=== PATIENT | male | born 1960 | race Caucasian/White ===

== ENCOUNTER 2023-10-23 15:53 | Inpatient (IN) | payer BC, SELFPAY ==
[2023-10-22] VITALS (7 sets, daily range): BP systolic 134–152; BP diastolic 76–112; BMI 31.7
[2023-10-22 17:24] LABS: Glucose - Point of Care 95 mg/dl (70-99)
[2023-10-22 18:27] LABS: % Basophils 0.8 % (0-2); % Eosinophils 2.7 % (0-6); % Immature Granulocytes 0.3 % (0-0.5); % Lymphocytes 27.2 % (20.5-51.1); % Monocytes 6.9 % (1.7-9.3); % Neutrophils 62.1 % (42.2-75.2); Absolute Basophils 0.1 10^3/uL (0-0.2); Absolute Eosinophils 0.2 10^3/uL (0-0.7); Absolute Lymphocytes 2.1 10^3/uL (1.2-3.4); Absolute Monocytes 0.5 10^3/uL (0.1-0.6); Absolute Neutrophils 4.8 10^3/uL (1.4-6.5); Hematocrit 36.7 % (39.0-52.0); Hemoglobin 11.9 g/dL (13.0-18.0); Mean Corp Hgb Conc. 32.4 g/dL (33.0-37.0); Mean Corpuscular Hgb 22.1 pg (27.0-31.0); Mean Corpuscular Volume 68.2 fL (80.0-94.0); Mean Platelet Volume 9.7 fL (7.4-10.4); Nucleated Red Blood Cells % 0 % (-); Platelet Count 220 10^3/uL (130-400); Red Blood Cell Count 5.38 10^6/uL (4.70-6.10); Red Cell Dist. Width 15.4 % (11.5-14.5); White Blood Cell Count 7.8 10^3/uL (4.8-10.8)
[2023-10-22 18:45] LABS: ALT (SGPT) 16 U/L (0-50); AST (SGOT) 16 U/L (17-59); Albumin 4.5 g/dl (3.5-5.0); Alkaline Phosphatase 71 U/L (38-126); Blood Urea Nitrogen 10 mg/dl (9-20); Calcium 9.4 mg/dl (8.4-10.2); Carbon Dioxide 25 mmol/L (22-30); Chloride 105 mmol/L (98-107); Glucose 94 mg/dl (70-99); Potassium 3.4 mmol/L (3.5-5.1); Sodium 138 mmol/L (135-145); Total Bilirubin 0.8 mg/dl (0.2-1.3); Total Protein 7.5 g/dl (6.3-8.2); eGFR > 60.00
[2023-10-22 19:03] LABS: Troponin I < 0.012 ng/ml
--- NOTE | 2023-10-22 19:37 | ED.GENMED ---
History of Present Illness
General
Chief Complaint: Change in Mental Status
Source: patient
Time Seen by Provider: 10/22/23 17:37
History of Present Illness
History of Present Illness:
63-year-old male who presents after he suddenly had difficulty writing an email. Patient states he was at work and doing his normal routine when he suddenly felt like he could not figure out how to do an email. The patient admits that he was
walking the hallway just prior to send a little bit of pain in his right arm. No numbness or motor weakness. He then went home and could not figure out how to get in his house which is a coated door. He states that his daughter's birthday and he
never forgets it. He now feels a lot better but was concerned. He states he did look in the mirror and did not see any asymmetry. He did not notice any motor weakness. He denies any headache. No back pain. He does admit that he is under a lot
of stress. States that he is about to retire in 2 days after many years at the same job and also admits that his ex-girlfriend of 22 years has obtained a digital content marketing manager after leaving him.
Past History
Past History
ED Past Medical History: HTN; Negative CAD
ED Past Surgical History: Negative Cardiac
Social History
Tobacco: Non-smoker
Alcohol: None
Drug: None
Living: with family
Employment: Employed
Family History
Family History: Other (Noncontributory)
Phy Exam
Physical Exam
Physical Exam:
CONSTITUTIONAL Patient alert and oriented to person, place and time. Well-appearing. Vital signs reviewed.
HEAD atraumatic, normocephalic.
EYES eyelids normal to inspection, Pupils equally round and reactive to light, Extraocular muscles intact, Conjunctiva normal, Sclera normal.
NECK normal range of motion, Trachea midline, no jugular venous distention.
RESPIRATORY CHEST No respiratory distress noted, Chest expansion equal, Bilateral breath sounds clear.
CARDIOVASCULAR regular rate and rhythm, Heart sounds normal.
ABDOMEN abdomen nontender, Bowel sounds normal. No distention.
BACK normal inspection, no obvious deformities
UPPER EXTREMITY range of motion normal, Motor strength normal, no cyanosis, no edema.
LOWER EXTREMITY range of motion normal, Motor strength normal, no cyanosis, no edema.
NEURO Speech normal, No focal motor deficits, Sulma coma scale 15, Memory normal, Cranial Nerves intact to screening exam. Normal finger-nose. No pronator drift.
SKIN skin warm, dry, and normal in color.
PSYCHIATRIC patient oriented to person place and time, Normal affect.
Course
Orders/Labs/Results
Orders:
Orders
10/22/23 17:20
Electrocardiogram (*1) Urgent
Reason for Study: TIA/Stroke
10/22/23 17:21
EKG- Treatment ONCE
10/22/23 17:37
CT Head W/o Iv Contrast Urgent
Comment:
Reason For Exam: aphasia, htn
10/22/23 18:18
Complete Blood Count/With Diff Urgent
Comprehensive Metabolic Panel Urgent
Magnesium Urgent
Troponin I Urgent
10/22/23 20:06
Aspirin Chewable [Low Strength Aspirin] 243 mg PO NOW STA
Abnormal Lab Results
10/22/23
18:18
Hgb 11.9 L g/dL
(13.0-18.0)
Hct 36.7 L %
(39.0-52.0)
MCV 68.2 L fL
(80.0-94.0)
MCH 22.1 L pg
(27.0-31.0)
MCHC 32.4 L g/dL
(33.0-37.0)
RDW 15.4 H %
(11.5-14.5)
Potassium 3.4 L mmol/L
(3.5-5.1)
AST 16 L U/L
(17-59)
10/22/23 18:18
10/22/23 18:18
Vital Signs
Initial and Last Documented VS:
Initial Vital Signs
Temp Pulse Resp BP Pulse Ox
98.1 F 95 18 147/112 98
10/22/23 17:15 10/22/23 17:15 10/22/23 17:15 10/22/23 17:15 10/22/23 17:15
Last Documented Vital Signs
Temp Pulse Resp BP Pulse Ox
98.1 F 82 19 145/84 96
10/22/23 17:15 10/22/23 19:15 10/22/23 19:15 10/22/23 19:00 10/22/23 19:15
MDM/Problems Addressed
Differential Diagnosis Includes:
Transient global amnesia, TIA
*Radiology
Radiology exam reviewed: preliminary read by ED provider (No obvious intracranial hemorrhage) and radiology read reviewed
*Pulse Oximetry
Patient hypoxic: no
*EKG
Interpreted by ED Provider?: Yes
Interpretation: normal
Rate: normal
Rhythm: sinus
Ophir: normal axis
QRS Pattern: normal QRS
Ischemia: no ischemia
*Auto Wheel Alignment Specialist Interpretation
Rate: normal
Interpretation: normal
Rhythm: sinus
*Critical Care Note
Total Time (30-74mins, 75-104mins- exclusive of procedures): Not Applicable
Data Reviewed
Review of Other/Old Records Reveals: Discharge Summary (From 2011 reviewed)
Source: patient
Prescriptions/Medications Considered But Not Given:
Consider TNK but patient symptoms have seemed to resolve. No aphasia noted
Patient Management
Discussion with other providers: [employer] D[employer] (Case discussed with neurology)
Escalation/DeEscalation of care consider admission/obs:
63-year-old male with history of hypertension who presents after he had difficulty with common tasks. Question whether this was an aphasia. Case was discussed with neurology who agrees that the patient is at some risk and should come in for MRI
and MRA and carotid evaluation. No clinical evidence for dissection. He had brief arm pain has resolved. He has no further symptoms. He has nonfocal motor exam at this time. He did take a baby aspirin prior to arrival. Patient does have a lot
of stress going on and could consider TGA but symptoms are very focal and not global amnesia
ED Attending Note
-
Portions of this chart may have been created with voice recognition software.� Occasional wrong word or��sound alike� substitutions may have occurred due to the inherent limitations of voice recognition software.
Discharge Plan
Departure
Patient Disposition: Admit
Date of Disposition: 10/22/23
Time of Disposition: 20:08
Admit to: Telemetry
Presentation/result/management discussed w/ accepting MD/DO: Hospitalist
Discharge Problem:
TIA (transient ischemic attack)
Prescriptions:
No Action
aspirin 81 MG tablet,chewable
81 mg PO HS
hydrochlorothiazide 25 MG tablet
25 mg PO DAILY
simvastatin 10 MG tablet
10 mg PO HS
amlodipine 5 MG tablet
5 mg PO HS
irbesartan 300 MG tablet
300 mg PO DAILY
zolpidem 10 mg tablet
10 mg PO HSPRN PRN (Reason: sleep)
Patient Comments:
10/22/2023: last filled 08/29/23, 30 tabs for 30 days from [facility]
tadalafil 10 mg tablet
10 mg PO HS
Referrals:
Amber Izaguirre CRNP [Family Provider] -
Interventions
Interventions:
*Risk Screen - Suicide Last Done: 10/22/23 17:15
*General Assessment Last Done: 10/22/23 17:15
*Neglect/Abuse Screening Last Done: 10/22/23 17:15
ED- Pulmonary Assessment Last Done: 10/22/23 17:45
ED- Neurological Assessment Last Done: 10/22/23 17:45
ED- Cardiac Assessment Last Done: 10/22/23 17:45
Discharge Date and Time
Print Language: DOMINICAN
[2023-10-22] MEDS: LOW STRENGTH ASPIRIN 243 MG PO (20:11)
--- NOTE | 2023-10-22 21:02 | HPS.HSE ---
Family Physician
-
Family Physician: MARYLOU Carr
Chief Complaint
-
Confusion
History of Present Illness
Patient is a 63y M with PMH significant for hypertension who presents to ED complaining of confusion. Patient states that he was at work today when he noted a sharp, sudden pain in the R arm that lasted for a few seconds. This quickly resolved
and did not recur. He went back to his desk and noted that he was having trouble doing usual tasks. He could not compose an e-mail. He had difficulty working his keyboard and he specifically states that he could not remember 'how numbers work'.
Patient left early to go home around 3:30 PM. He notes that he had no vision changes or headache. He had no weakness or difficulty with gait. He arrived at home and was unable to enter his house using the keypad lock. He had to call his daughter
to slowly talk him through the unlock number sequence.
Once inside, patient called his son who drive him to the ED for further evaluation.
Since arrival here, patient states that he is feeling much improved. He has been using his cellphone here without difficulty.
Patient denies any prior history of similar symptoms, CT, CVA, etc.
Patient denies any recent changes in medications.
Patient does state that he has been under a great deal of stress over the past 3-4 months. He specifically received some distressing news today - shortly prior to the onset of his symptoms.
Medical History
Past Medical History
Past Medical History: Reports Other
Additional Past Medical History:
Hypertension
BPH
Dyslipidemia
Insomnia
Past Surgical History: Reports Other
Additional Past Surgical History:
L Knee Arthroscopy
Social History
Tobacco: Former Smoker (Quit smoking 17 years ago. Approx 30 pack years total use.)
Alcohol: Occasional
Drug: None
Family History
Family History: Other (Father: CT ( at 60yo) Mother: CAD)
Allergies / Home Medications
Allergies reflects when Allergies were last updated in [employer]
Home Medications with original date entered in [employer]
Allergy/Medication List:
Allergies
Allergy/AdvReac Type Severity Reaction Status Date / Time
bee venom protein (honey bee) Allergy Swelling Verified 11/14/20 19:57
Home Medications
aspirin 81 mg chewable tablet 81 mg PO HS 11/19/11
hydrochlorothiazide 25 mg tablet 25 mg PO DAILY 11/19/11
amlodipine 5 mg tablet 5 mg PO HS 11/14/20
irbesartan 300 mg tablet 300 mg PO DAILY 11/14/20
simvastatin 10 mg tablet 10 mg PO HS 11/14/20
tadalafil 10 mg tablet 10 mg PO HS 10/22/23
zolpidem 10 mg tablet 10 mg PO HSPRN PRN sleep 10/22/23
Review of Systems
-
History Source: Patient
A 12 point ROS was completed and negative except as noted: Yes
Constitutional: Denies Fever or Chills
Respiratory: Denies Cough or Trouble Breathing
Cardiac: Denies Chest Pain or Palpitations
Abdomen/GI: Denies Abdominal Pain, Nausea, Vomiting or Diarrhea
: Denies Dysuria, Frequency or Flank Pain
Musculoskeletal: Denies Joint Pain or Edema
Neurological: Denies Dizzy, Headache, Weakness or Numbness
Psych: Denies Depression or Anxiety
Physical Exam
Vital Signs
Vital Signs
Temp Pulse Resp BP Pulse Ox
98.1 F 83 14 152/85 96
10/22/23 17:15 10/22/23 20:45 10/22/23 20:45 10/22/23 20:00 10/22/23 20:45
Physical Exam
General: Other (63y M in no acute distress.)
HEENT: Moist mucous membranes, PERRLA and Other (No carotid bruits.)
Respiratory: Clear; No Wheezes or Rales
Cardiac: S1/S2 and Regular Rhythm; No Murmur
GI: Soft, Non Tender, Non Distended and Normal Bowel Sounds
Musculoskeletal: No Clubbing, No Cyanosis and No Edema
Neuro: AO x 3 and Nonfocal/grossly intact
Laboratory Results
-
10/22/23 18:18
10/22/23 18:18
Laboratory Results
Total Bilirubin 0.8 mg/dl (0.2-1.3) 10/22/23 18:18
AST 16 U/L (17-59) L 10/22/23 18:18
ALT 16 U/L (0-50) 10/22/23 18:18
Alkaline Phosphatase 71 U/L (38-126) 10/22/23 18:18
Troponin I < 0.012 ng/ml 10/22/23 18:18
Impression/Plan
-
A?P: Patient is a 63y M with PMH significant for hypertension and BPH who presents to ED complaining of confusion this afternoon.
CVA / TIA
- Observe overnight for further evaluation and treatment.
- ? CVA / TIA versus stress response etc.
- CT head unremarkable in the ED.
- Symptoms seem to have improved / resolved per patient. Exam is unremarkable.
- Continue ASA daily.
- MRI brain in the AM.
- Follow for any new / focal neurologic abnormalities.
Benign Hypertension
- Stable. Continue home med regimen with holding parameters.
- Adjust as needed for goal of normotension.
Dyslipidemia
- Stable. Continue daily statin.
BPH
- Stable. Hold tadalafil acutely.
- Bladder scan protocol.
DVT Prophylaxis: SCDs
Code Status: Full
[2023-10-22] MEDS: NORVASC 5 MG PO (22:22)
[2023-10-22] MEDS: LIPITOR 10 MG PO (22:27)
[2023-10-23 03:20] VITALS: BP 116/67
[2023-10-23 04:04] LABS: Troponin I < 0.012 ng/ml
[2023-10-23 05:32] LABS: Hematocrit 34.5 % (39.0-52.0); Hemoglobin 11.2 g/dL (13.0-18.0); Mean Corp Hgb Conc. 32.5 g/dL (33.0-37.0); Mean Corpuscular Hgb 22.2 pg (27.0-31.0); Mean Corpuscular Volume 68.5 fL (80.0-94.0); Mean Platelet Volume 9.6 fL (7.4-10.4); Platelet Count 192 10^3/uL (130-400); Red Blood Cell Count 5.04 10^6/uL (4.70-6.10); Red Cell Dist. Width 15.4 % (11.5-14.5); White Blood Cell Count 5.7 10^3/uL (4.8-10.8)
[2023-10-23 06:08] LABS: Troponin I < 0.012 ng/ml
[2023-10-23 06:27] LABS: Blood Urea Nitrogen 9 mg/dl (9-20); Calcium 9.1 mg/dl (8.4-10.2); Carbon Dioxide 25 mmol/L (22-30); Chloride 107 mmol/L (98-107); Estimated Creatinine Clearance > 125 ml/min; Glucose 110 mg/dl (70-99); HDL Cholesterol 31 mg/dl; LDL Cholesterol, Calculated 73 mg/dl; Potassium 3.6 mmol/L (3.5-5.1); Sodium 139 mmol/L (135-145); Total Cholesterol 139 mg/dl (50-199); Triglyceride 179 mg/dl (10-149); Very Low Density Lipoprotein 35 mg/dl (0-30); eGFR > 60.00
[2023-10-23] MEDS: ORETIC 25 MG PO (07:49)
[2023-10-23] MEDS: AVAPRO 300 MG PO (07:49)
[2023-10-23] MEDS: LOW STRENGTH ASPIRIN 81 MG PO (07:49)
[2023-10-23 07:58] VITALS: BP 118/71
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
[2023-10-23 09:12] VITALS: BP 142/85
[2023-10-23 10:45] LABS: Glycohemoglobin (HgbA1c) 5.8 % (4.0-5.6)
[2023-10-23 11:31] LABS: Troponin I < 0.012 ng/ml
[2023-10-23 12:25] LABS: TSH Reflex To Free T4 1.64 uIU/ml (0.47-4.68)
[2023-10-23 13:01] LABS: Folate 15.4 ng/ml (2.76-20)
--- NOTE | 2023-10-23 14:39 | PTOTSP ---
Speech Therapy Assessment
Expressive and receptive language skills are within functional limits. Patient tolerating diet of regular solids and thin liquids. Provided patient with information on outpatient services including the ability to complete comprehensive assessment of
cognitive/communication skills if needed.
No skilled ST indicated in acute care setting.
--- NOTE | 2023-10-23 15:57 | W.PN.HOSP.TC ---
Today's Communication/Plan
-
Discharge tomorrow
Assessment / Plan
Assessment / Plan
63y M with PMH significant for hypertension and BPH who presents to ED complaining of confusion this afternoon.
Transient confusion
Acute CVA
- Appreciate neurology input, brain MRI confirmed small acute/subacute infarction
- Out of the window for permissive hypertension
- Continue aspirin, neurology recommends adding Plavix for 21 days through 11/13/23
- LDL 73, can increase home simvastatin from 10 mg at bedtime to 20 mg at bedtime
- Echo requested, follow-up on results. A1C 5.8
- Monitor overnight, plan for discharge tomorrow
Benign Hypertension
- Stable. Continue home med regimen with holding parameters.
Dyslipidemia
- Stable. Continue daily statin.
BPH
- Stable. Hold tadalafil acutely.
- Bladder scan protocol.
Obesity due to excess calories
- Affects all aspects of care
DVT Prophylaxis: SQ lovenox
Code Status: Full
Total time spent to see the patient on the floor, examine the patient, review data and lab results, discuss treatment plan with patient, nursing staff around 40 minutes.
Physical Exam
General: Obese, no acute distress
HEENT: Normocephalic, Atraumatic, EOMI, MMM
Respiratory: Clear to Auscultation bilaterally
Cardiac: Normal S1/S2, Regular Rate and Rhythm
GI: Soft, Nontender, Nondistended, Normal Bowel Sounds
Extremities: No Clubbing, Cyanosis, or Edema
Neuro: Nonfocal/Grossly Intact
Psych: Calm, Cooperative
Derm: No Visible lesions
Anticipated Discharge: Within 24 hours
Subjective/Interval History
-
Date of Service: October 23, 2023
No more recurrence of confusion. No weakness, no dysarthria, no dysphagia. No fever, no vomiting.
Objective Data
-
Labs:
Laboratory Results
10/23/23
05:19
WBC 5.7
Hgb 11.2 L
Hct 34.5 L
Plt Count 192
Sodium 139
Potassium 3.6
Chloride 107
Carbon Dioxide 25
BUN 9
Creatinine 0.7
Glucose 110 H
Calcium 9.1
Vital Signs:
Vital Signs
Temp Pulse Resp BP Pulse Ox
98.0 F 65 18 118/71 100
10/23/23 07:58 10/23/23 07:58 10/23/23 07:58 10/23/23 07:58 10/23/23 07:58
I&O
10/22/23 10/23/23 10/24/23
06:59 06:59 06:59
Intake Total 480 / 480
Balance 480 / 480
--- NOTE | 2023-10-23 16:58 | CM ---
geographic information systems manager reviewed patient's chart and met with patient and patient lives alone in a 2 story home with 6 steps to enter and 6 steps to 2nd floor, patient is independent with adl's and ambulation, no dme. patient drives.
PCP: Amber Izaguirre
Pharmacy: [facility] [place].
Plan; Home no needs, patient was made aware that he is OBS, OBS letter explained and signed.
[2023-10-23 17:01] VITALS: BP 155/82
[2023-10-23] MEDS: LOVENOX 40 MG SC (17:16)
[2023-10-23 19:40] VITALS: BP 124/67
[2023-10-23] MEDS: NORVASC 5 MG PO (21:50)
[2023-10-23] MEDS: LIPITOR 10 MG PO (21:51)
[2023-10-23] MEDS: PLAVIX 300 MG PO (21:54)
[2023-10-23] MEDS: MELATONIN 5 MG PO (22:51)
[2023-10-23 23:20] VITALS: BP 122/72
[2023-10-24 03:30] VITALS: BP 100/57
[2023-10-24 07:00] VITALS: BP 125/73
[2023-10-24] MEDS: AVAPRO 300 MG PO (07:40)
[2023-10-24] MEDS: PLAVIX 75 MG PO (07:40)
[2023-10-24] MEDS: ORETIC 25 MG PO (07:40)
[2023-10-24] MEDS: LOW STRENGTH ASPIRIN 81 MG PO (07:40)
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
--- NOTE | 2023-10-24 08:51 | W.PN.HOSP.TC ---
Today's Communication/Plan
-
Discharge today
Assessment / Plan
Assessment / Plan
63y M with PMH significant for hypertension and BPH who presents to ED complaining of confusion this afternoon.
Transient confusion
Acute CVA
- Appreciate neurology input, brain MRI confirmed small acute/subacute infarction
- Out of the window for permissive hypertension
- Continue aspirin, neurology recommends adding Plavix for 21 days through 11/13/23
- LDL 73, can increase home simvastatin from 10 mg at bedtime to 20 mg at bedtime
- Echo normal. A1C 5.8
- Medically stable for discharge, follow-up with neurology in the office in 4 weeks.
Glucose intolerance
- A1C 5.8. Low carbohydrate diet discussed
Benign Hypertension
- Stable. Continue home med regimen with holding parameters.
Dyslipidemia
- Stable. Continue daily statin.
BPH
- Stable. Resume tadalafil
Obesity due to excess calories
- Affects all aspects of care
DVT Prophylaxis: SQ lovenox
Code Status: Full
Physical Exam
General: Obese, no acute distress
HEENT: Normocephalic, Atraumatic, EOMI, MMM
Respiratory: Clear to Auscultation bilaterally
Cardiac: Normal S1/S2, Regular Rate and Rhythm
GI: Soft, Nontender, Nondistended, Normal Bowel Sounds
Extremities: No Clubbing, Cyanosis, or Edema
Neuro: Nonfocal/Grossly Intact
Psych: Calm, Cooperative
Derm: No Visible lesions
Anticipated Discharge: Today
Subjective/Interval History
-
Date of Service: October 24, 2023
No recurrence of confusion. No weakness, no fever, no vomiting.
Objective Data
-
Vital Signs:
Vital Signs
Temp Pulse Resp BP Pulse Ox
98.0 F 68 16 125/73 98
10/24/23 03:30 10/24/23 07:40 10/24/23 03:30 10/24/23 07:40 10/24/23 03:30
I&O
10/23/23 10/24/23 10/25/23
06:59 06:59 06:59
Intake Total 480 / 480 1320 / 1320
Balance 480 / 480 1320 / 1320
--- NOTE | 2023-10-24 09:06 | W.DCSUMMARY ---
Discharge Summary
Discharge Data
Date of Admission: 10/23/23
Date of Discharge: 10/24/23
-
Pending Results: No
Hospital Course
Discharge diagnosis:
Acute stroke
Transient confusion
Glucose intolerance
Benign essential hypertension
Hyperlipidemia
Benign prostatic hypertrophy
Obesity due to excess calories
Consults: Neurology
Brain MRI:
Small focus of diffusion hyperintensity signal within the subcortical matter in the left frontal lobe, likely acute/subacute infarction.
Small prior infarction within the posterior aspect of the right cerebellar hemisphere.
Minimal sequelae of small vessel ischemic disease.
Echo:
1. Right technically difficult study with poor visualization of the
endocardium.
2. Grossly normal left ventricular size and systolic function without obvious
regional wall motion abnormalities. Estimated left ventricular ejection
fraction is 55 to 60% by visual estimation.
3. Grossly normal right ventricular size and systolic function.
4. No gross valvular abnormalities.
5. No pericardial effusion.
Hospital course:
63-year-old male with a past medical history of hypertension, hyperlipidemia, obesity, obstructive sleep apnea, and insomnia was admitted for an acute episode of transient confusion. Patient reports having difficulty typing, difficulty with word
finding, and confusion. This lasted for 2 to 3 hours, and resolved spontaneously.
Patient was seen in conjunction with neurology. Brain MRI confirmed a small acute CVA. He was out of the window for permissive hypertension. He is already on aspirin 81 mg daily. Neurology recommends Plavix 75 mg daily for 21 days through
11/13/2023. His LDL is 73. He is on simvastatin 10 mg at bedtime. Neurology recommends increasing it to 20 mg at bedtime. His echocardiogram is grossly unremarkable. Hemoglobin A1c is 5.8, dietary recommendations were provided. Patient's blood
pressure is controlled on his home regimen, he can continue his amlodipine, irbesartan, and hydrochlorothiazide.
Patient did not have any more recurrence of his symptoms. He is medically stable for discharge. He needs to follow-up with his primary care doctor in 1 week, as well as neurology in the office in 4 weeks.
Disposition: Home self-care
Discharge planning: Required 37 minutes
Discharge Plan
-
Patient Disposition: Home (Routine Discharge)
Discharge Diagnosis/Procedures: Acute stroke, transient confusion
Condition: Good
Diet: Low Fat, Low Cholesterol and Diabetic, Carb Controlled
Activity: As tolerated
Driving Restrictions: As prior to admission
Activity Restrictions/Additional Instructions:
Neurology recommends you take Plavix 75 mg daily through 11/13/2023.
Also recommend screening colonoscopy for colon cancer if you have not had one, call GI for appointment.
Please follow-up with your primary care doctor in 1 week, and neurology in the office in 4 weeks.
Referrals:
Harleen Haro CRNP [Specified Professional Personl] - in four to six weeks
Eveline Abdalla MD [Active] - (Call for screening colonoscopy if you had not had one. )
Amber Izaguirre CRNP [Family Provider] -
Prescriptions:
New
clopidogrel 75 mg Tablet
75 mg PO DAILY Qty: 20 0RF
simvastatin 20 mg tablet
20 mg PO DAILY Qty: 30 0RF
Continued
aspirin 81 MG tablet,chewable
81 mg PO HS
hydrochlorothiazide 25 MG tablet
25 mg PO DAILY
amlodipine 5 MG tablet
5 mg PO HS
irbesartan 300 MG tablet
300 mg PO DAILY
zolpidem 10 mg tablet
10 mg PO HSPRN PRN (Reason: sleep)
Patient Comments:
10/22/2023: [facility]29/23, [facility]
tadalafil 10 mg tablet
10 mg PO HS
Discontinued
simvastatin 10 MG tablet
10 mg PO HS
Discharge Orders:
Discharge Patient (As Directed); Ordered 10/24/23
Ordered By: Leeroy Abdalla
Discharge Date and Time
Discharge Date/Time: 10/24/23 10:00
Print Language: TURKISH
--- NOTE | 2023-10-24 12:22 | CM ---
met with patient at bedside.patient stable for dc home with no needs.family to transport home.
== END 2023-10-24 10:00 | disposition home or self-care (01) | DRG 66 ==
LOC: 3 WEST ACU 15:53
PROVIDERS: Registered Nurse Critical Care Medicine; ADMITTING PHYSICIAN Hospitalist; ATTENDING PHYSICIAN Family Medicine; CONSULT PHYSICIAN Student in an Organized Health Care Education/Training Program; EMERGENCY PHYSICIAN Emergency Medicine; FAMILY PHYSICIAN Nurse Practitioner
DX: I63.9 Cerebral infarction, unspecified (principal); R41.82 Altered mental status, unspecified; R47.01 Aphasia; M79.601 Pain in right arm; I10 Essential (primary) hypertension; E74.39 Other disorders of intestinal carbohydrate absorption; G47.33 Obstructive sleep apnea (adult) (pediatric); N52.9 Male erectile dysfunction, unspecified; E66.09 Other obesity due to excess calories; G47.00 Insomnia, unspecified; E78.5 Hyperlipidemia, unspecified; N40.0 Benign prostatic hyperplasia without lower urinary tract symptoms; Z87.891 Personal history of nicotine dependence; Z82.49 Family history of ischemic heart disease and other diseases of the circulatory system; Z91.030 Bee allergy status; Z79.82 Long term (current) use of aspirin; Z68.33 Body mass index [BMI] 33.0-33.9, adult
CPT/HCPCS: 70450; 70544; 70548; 70551; 80048; 80053; 80061; 82728; 82746; 82962; 83036; 83735; 84443; 84484; 85025; 85027; 92523; 93005; 93306; 97161; 97166; 99285; A9585

== ENCOUNTER → 2023-12-03 12:48 | Outpatient (REF) | payer BC, SELFPAY | LOC: RCS 12:48 | PROVIDERS: ATTENDING PHYSICIAN Internal Medicine Cardiovascular Disease; FAMILY PHYSICIAN Nurse Practitioner | DX: I10 Essential (primary) hypertension (principal); G45.9 Transient cerebral ischemic attack, unspecified | CPT/HCPCS: 93225; 93226 ==